=== PATIENT | male | born 1990 | race American Indian/Alaskan Native ===

== ENCOUNTER 2021-09-02 20:20 | Emergency (ER) | payer SELFPAY ==
[2021-09-02 21:29] VITALS: BP 199/126
== END 2021-09-02 23:30 | disposition left against medical advice (07) ==
LOC: ED 20:20
DX: R03.0 Elevated blood-pressure reading, without diagnosis of hypertension (principal); R51.9 Headache, unspecified; Z53.21 Procedure and treatment not carried out due to patient leaving prior to being seen by health care provider